=== PATIENT | male | born 1990 | race Two or more races ===

== ENCOUNTER 2017-06-13 16:35 | Emergency (ER) | payer OTHER ==
[~2017-06-13] VITALS: Ht 165.1 cm; Wt 76.1 kg
[2017-06-13] MEDS ORDERED: NAPHSOL OD (17:26)
[2017-06-13 17:37] VITALS: BP 127/85
== END 2017-06-13 17:38 | disposition home or self-care (01) ==
LOC: M ED 16:35
DX: H10.11 Acute atopic conjunctivitis, right eye (principal)